=== PATIENT | female | born 1965 | race Two or more races ===

== ENCOUNTER 2017-05-05 17:57 | Emergency (ER) | payer MEDICAID ==
[~2017-05-05] VITALS: Ht 160 cm; Wt 107.0 kg
[~2017-05-05 17:57] MED LIST: BP MED; IBUPROFEN600 MG ORAL; MECLIZINE HCL25 MG ORAL
[2017-05-05] MEDS ORDERED: IBUPROFEN600 MG ORAL (18:36)
[2017-05-05] MEDS ORDERED: ROBAXIN-750750 MG PO (18:36)
[2017-05-05 18:39] VITALS: BP 111/78
[2017-05-05] MEDS ORDERED: Ipratropium 0.02% Inh Soln 2.5ml UD ONE (18:51)
[2017-05-05] MEDS ORDERED: Albuterol ud Inhalation ONE (18:51)
[2017-05-05] MEDS ORDERED: Ranitidine 50mg/2ml Inj ONE (18:52)
[2017-05-05] MEDS ORDERED: Solu-MEDROL 125mg Inj ONE (18:53)
[2017-05-05] MEDS ORDERED: Terbutaline 1mg/ml Inj ONE (18:53)
[2017-05-05] MEDS ORDERED: DiphenhydrAMINE 50mg/ml Inj ONE (18:53)
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
== END 2017-05-05 18:39 | disposition home or self-care (01) ==
LOC: EMR 18:15
DX: S93.402A Sprain of unspecified ligament of left ankle, initial encounter (principal); V43.52XA Car driver injured in collision with other type car in traffic accident, initial encounter; Y92.481 Parking lot as the place of occurrence of the external cause; M54.5 Low back pain; I10 Essential (primary) hypertension
CPT/HCPCS: 29540; 99284; J2780

== ENCOUNTER 2017-10-17 14:46 | Emergency (ER) | payer MEDICAID ==
[~2017-10-17] VITALS: Ht 160 cm; Wt 107.0 kg
[~2017-10-17 14:46] MED LIST changes: +ROBAXIN-750750 MG PO
[2017-10-17] MEDS ORDERED: VITAMIN D1000 UNI1 ORAL (15:00)
[2017-10-17] MEDS ORDERED: LISINOPRIL5 MG ORAL (15:00)
[2017-10-17] MEDS ORDERED: [UNRECOGNIZED DRUG - REMARK] (15:00)
[2017-10-17] MEDS ORDERED: CORTISPORIN EAR10 ML RIGHT EAR (15:26)
[2017-10-17 15:30] VITALS: BP 117/80
--- NOTE | 2017-10-17 16:33 | Emergency Room Report ---
History of Present Illness General Chief Complaint: Earache Source: Patient Present Illness HPI The patient is a 52-year-old female presenting for right ear pain which began 2 days prior for no known reason. Pain is a 7/10 dull ache with no known provoking or relieving factors. She denies any other symptoms including nausea , vomiting, dizziness, blurred vision, change in hearing, sore throat, cough, fever, chills Allergies: Coded Allergies: No Known Allergies (Unverified , 11/05/14) Patient History Past Medical History: see triage record Pertinent Family History: none Last Menstrual Period: Perimenopausal Reviewed Nursing Documentation: PMH: Agreed, PSxH: Agreed Nursing Documentation-PMH Hx Hypertension: Yes Review of Systems All Other Systems: negative except mentioned in HPI Physical Exam Vital Signs Date Time Temp Pulse Resp B/P (MAP) Pulse Ox O2 Delivery O2 Flow Rate FiO2 10/17/17 14:55 98.1 69 16 120/79 98 Room Air Sp02 EP Interpretation: reviewed, normal General Appearance: no apparent distress, alert, GCS 15, non-toxic Head: normocephalic, atraumatic Eyes: bilateral eye normal inspection, bilateral eye PERRL ENT: hearing grossly normal, normal pharynx, no angioedema, normal voice, other - R EAC erythema and TTP Neck: full range of motion, supple/symm/no masses Respiratory: chest non-tender, lungs clear, normal breath sounds, speaking full sentences Cardiovascular #1: regular rate, rhythm, no edema Musculoskeletal: back normal, gait/station normal, normal range of motion, non- tender Neurologic: alert, oriented x3, responsive, motor strength/tone normal, sensory intact, speech normal Psychiatric: judgement/insight normal, memory normal, mood/affect normal, no suicidal/homicidal ideation Skin: normal color, no rash, warm/dry, well hydrated Medical Decision Making PA Attestation Dr. Lucio is my supervising physician. Patient management was discussed with my supervising physician Diagnostic Impression: Primary Impression: Otitis externa, acute Qualified Codes: H60.501 - Unspecified acute noninfective otitis externa, right ear ER Course The patient is a 52-year-old female presenting for right ear pain which began 2 days prior Differential diagnosis include but not limited to otitis externa, otitis media, mastoiditis, sinusitis, pharyngitis Physical exam: Vitals within normal limits. No apparent distress. HEENT: R ear external auditory canal is erythematous and edematous. Tympanic membrane is intact. No bulging. There is no cervical lymphadenopathy. Otherwise exam is unremarkable The patient will be discharged home with a prescription for Cortisporin Last Vital Signs Date Time Temp Pulse Resp B/P (MAP) Pulse Ox O2 Delivery O2 Flow Rate FiO2 10/17/17 15:30 97.5 66 18 117/80 99 Room Air Status: improved Disposition: HOME, SELF-CARE Condition: Improved Scripts Neomycin/Polymyxin B Sulf/Hc* (CORTISPORIN EAR SOLUTION*) 10 Ml Solution 4 DROP RIGHT EAR QID, #10 ML 0 Refills Prov: JUAN DANIEL HINDS 10/17/17 Referrals: [facility],REFERRING (PCP) Patient Instructions: Otitis Externa Additional Instructions: I discussed my findings with the patient. All questions and concerns have been answered. Treatment and medication compliance have been addressed. I advised the patient that they need to follow up with PMD in 3-5 days. Return to ED if pain remains or worsens, cough worsens or remains, you notice blood in your sputum, you notice wheezing, you experience a fever, or if needed for any reason. Patient verbalized understanding of discharge instructions. JUAN DANIEL HINDS Oct 17, 2017 16:33
== END 2017-10-17 15:30 | disposition home or self-care (01) ==
LOC: EMR 15:24
DX: H60.91 Unspecified otitis externa, right ear (principal); I10 Essential (primary) hypertension
CPT/HCPCS: 99283

== ENCOUNTER 2017-11-29 07:28 | Emergency (ER) | payer MEDICAID ==
[~2017-11-29] VITALS: Ht 160 cm; Wt 108.9 kg
[~2017-11-29 07:28] MED LIST changes: +CORTISPORIN EAR10 ML RIGHT EAR; +LISINOPRIL5 MG ORAL; +VITAMIN D1000 UNI1 ORAL; +[UNRECOGNIZED DRUG - REMARK]
[2017-11-29] MEDS ORDERED: ROBAXIN-750750 MG PO (07:51)
[2017-11-29] MEDS ORDERED: TESSALON PERLE100 MG ORAL (07:51)
[2017-11-29 07:55] VITALS: BP 146/88
--- NOTE | 2017-11-29 07:59 | Emergency Room Report ---
History of Present Illness General Chief Complaint: Pain Source: Patient Present Illness HPI 52-year-old female, history of back pain, history of osteoarthritis, presenting with upper right-sided back pain for the last 3-4 days. States that it hurts more when she twists or bends. Denies any numbness or tingling of her extremities. No urinary retention. No trauma Also states that she has had about one week of a dry cough. No shortness of breath. No fever no chills no myalgias Allergies: Coded Allergies: No Known Allergies (Unverified , 11/05/14) Patient History Past Medical History: see triage record Past Surgical History: none Pertinent Family History: none Last Menstrual Period: 11/06/17 Now: No Reviewed Nursing Documentation: PMH: Agreed, PSxH: Agreed Nursing Documentation-PMH Hx Hypertension: Yes Review of Systems All Other Systems: negative except mentioned in HPI Physical Exam Vital Signs Date Time Temp Pulse Resp B/P (MAP) Pulse Ox O2 Delivery O2 Flow Rate FiO2 11/29/17 07:38 97.7 79 17 146/88 99 Room Air Sp02 EP Interpretation: reviewed, normal General Appearance: normal inspection, well appearing, no apparent distress, alert, GCS 15, non-toxic, other - smiling, conversing, well hydrated Head: normocephalic, atraumatic Eyes: bilateral eye normal inspection, bilateral eye PERRL, bilateral eye EOMI ENT: normal ENT inspection, normal pharynx, normal voice, moist mucus membranes Neck: normal inspection, full range of motion, supple Respiratory: normal inspection, lungs clear, normal breath sounds, no respiratory distress, no retraction, no wheezing, speaking full sentences, chest symmetrical Cardiovascular #1: normal inspection, regular rate, rhythm, no edema, normal capillary refill Cardiovascular #2: 2+ radial (R), 2+ radial (L) Gastrointestinal: normal inspection, non tender, soft, non-distended, no guarding Musculoskeletal: other - mild paraspinal R sided thoracic tenderness no midline tenderness FROM. Neurologic: normal inspection, alert, oriented x3, responsive, motor strength/ tone normal, sensory intact, normal gait, speech normal Psychiatric: normal inspection, judgement/insight normal, memory normal Skin: normal inspection, normal color, no rash, warm/dry, well hydrated, normal turgor Medical Decision Making Diagnostic Impression: Primary Impression: Cough Additional Impression: Back pain ER Course 52-year-old female, chronic back pain, p/w back pain and dry cough DDX: Likely musculoskeletal back pain vs. muscular strain vs. sciatica Lumbar fracture is unlikely given patients age, no midline tenderness, no history of trauma, and that patient is ambulatory. Therefore, at this time no imaging is indicated Serious diagnoses such as cord compression, epidural abscess is unlikely in this patient given the clinical scenario and abscess of neurological symptoms or findings. Patient appears nontoxic. Dry cough: Likely postviral, lung exam is normal, is not having any other flulike symptoms at this time Plan: None in the emergency room ER course: Patient has remained nontoxic appearing and ambulatory in the ED. Disposition: Patient will be discharged to home with prescription of Tessalon Perles and robaxin. Patient cautioned of the effects of robaxin including possible impairment of physical or mental abilities. Patient was instructed to refrain from operating machinery or driving. Patient is also cautioned on the GI effects of motrin and to take sparingly. Patient verbalized understanding. Strict precautions discussed with patient on when to emergently return to the ED which includes severe/worsening back pain, leg weakness/numbness, urinary retention/incontinence, fever or chills, which may indicate severe illness. Also she is having chest pain, difficulty breathing, or worsening cough Patient is to follow up with their PMD within 5 days. Patient agrees with plan. Please note that this Emergency Department Report was dictated using [employer] purifier technology software, occasionally this can lead to erroneous entry secondary to interpretation by the dictation equipment. Last Vital Signs Date Time Temp Pulse Resp B/P (MAP) Pulse Ox O2 Delivery O2 Flow Rate FiO2 11/29/17 07:38 97.7 79 17 146/88 99 Room Air Disposition: HOME, SELF-CARE Condition: Stable Scripts Benzonatate* (TESSALON PERLE*) 100 Mg Capsule 100 MG ORAL THREE TIMES A DAY for 7 Days, #21 PERLE 0 Refills Prov: Retino,Clairose M.D. 11/29/17 Methocarbamol* (ROBAXIN-750*) 750 Mg Tablet 750 MG PO QID, #28 TAB 0 Refills Prov: Retino,Clairose M.D. 11/29/17 Patient Instructions: Cough, Adult, [id number], Back Pain, Adult, Easy-to- Read Retino,Clairose M.D. Nov 29, 2017 07:59
== END 2017-11-29 07:55 | disposition home or self-care (01) ==
LOC: EMR 07:52
DX: M54.9 Dorsalgia, unspecified (principal); R05 Cough; I10 Essential (primary) hypertension
CPT/HCPCS: 99283

== ENCOUNTER 2017-12-08 17:36 | Emergency (ER) | payer MEDICAID ==
[~2017-12-08] VITALS: Ht 160 cm; Wt 111.6 kg
[~2017-12-08 17:36] MED LIST changes: +TESSALON PERLE100 MG ORAL
[2017-12-08 17:56] VITALS: BP 141/90
[2017-12-08] MEDS ORDERED: BUSPAR10 MG ORAL (18:41)
--- NOTE | 2017-12-08 18:41 | Emergency Room Report ---
History of Present Illness General Chief Complaint: Pain Present Illness Allergies: Coded Allergies: No Known Allergies (Unverified , 11/05/14) Nursing Documentation-PMH Hx Hypertension: Yes Physical Exam Vital Signs Date Time Temp Pulse Resp B/P (MAP) Pulse Ox O2 Delivery O2 Flow Rate FiO2 12/08/17 17:53 98.2 83 20 141/90 99 Room Air Medical Decision Making PA Attestation Dr. schrader is my supervising Physician whom patient management has been discussed with. Diagnostic Impression: Primary Impression: Anxiety as acute reaction to exceptional stress Last Vital Signs Date Time Temp Pulse Resp B/P (MAP) Pulse Ox O2 Delivery O2 Flow Rate FiO2 12/08/17 17:56 98.2 20 141/90 99 Room Air 12/08/17 17:53 83 Disposition: HOME, SELF-CARE Condition: Stable Additional Instructions: Take medications as directed. Follow up with a Primary Care Provider or psychiatric physician in 3-5 days , even if your symptoms have resolved. --Please review [employer] information Return sooner to ED if new symptoms occur, or current symptoms become worse. - Please note that this Emergency Department Report was dictated using [employer] intern technology software, occasionally this can lead to erroneous entry secondary to interpretation by the dictation equipment. Kenzie Vang Dec 08, 2017 18:41
[2017-12-08] MEDS ORDERED: IBUPROFEN600 MG ORAL (19:45)
[2017-12-08 19:53] VITALS: BP 132/95
--- NOTE | 2017-12-08 22:47 | Emergency Room Report ---
History of Present Illness General Chief Complaint: Pain Source: Patient Present Illness HPI 52-year-old female presents to ED complaining of left shoulder pain times one week. Denies trauma. Pain is throbbing, 8/10, nonradiating. Worse with raising shoulder. Has history of arthritis. No other aggravating or leading factors. Denies any other associated symptoms Allergies: Coded Allergies: No Known Allergies (Unverified , 11/05/14) Patient History Past Medical History: HTN Past Surgical History: none Pertinent Family History: none Social History: Denies: smoking, alcohol use, drug use Now: No Immunizations: UTD Reviewed Nursing Documentation: PMH: Agreed, PSxH: Agreed Nursing Documentation-PMH Hx Hypertension: Yes Review of Systems All Other Systems: negative except mentioned in HPI Physical Exam Vital Signs Date Time Temp Pulse Resp B/P (MAP) Pulse Ox O2 Delivery O2 Flow Rate FiO2 12/08/17 17:53 98.2 83 20 141/90 99 Room Air Sp02 EP Interpretation: reviewed, normal General Appearance: no apparent distress, alert, GCS 15, non-toxic Head: normocephalic Eyes: bilateral eye normal inspection, bilateral eye PERRL ENT: normal ENT inspection Neck: normal inspection Respiratory: normal inspection Cardiovascular #1: normal inspection Gastrointestinal: normal inspection Rectal: deferred Genitourinary: no CVA tenderness Musculoskeletal: tender - L shoulder - pain with abduction Neurologic: alert, oriented x3, responsive, motor strength/tone normal, sensory intact, speech normal Psychiatric: normal inspection Skin: normal inspection Lymphatic: normal inspection Medical Decision Making Diagnostic Impression: Primary Impression: Shoulder pain Qualified Codes: M25.512 - Pain in left shoulder ER Course Hospital Course 52-year-old febrile presents ED complaining of left shoulder pain times one week. No trauma Differential diagnoses include: Fracture, dislocation, sprain, contusion Clinical course Patient placed on stretcher. After initial history and physical, I ordered pain medications and Xrays of L shoulder Xrays prelim read shows no acute fracture/dislocation. Based on pain with abduction likely rotator cuff tendinitis. Discussed the patient. Recommended ice, rest, NSAIDS, followup with PMD Diagnosis - shoulder pain Stable and discharged to home with prescription for Motrin. apply ice. weight bear as tolerated. Followup with PMD. Return to ED if symptoms recur or worsen Other X-Ray Diagnostic Results Other X-Ray Diagnostic Results : X-Ray ordered: L shoulder # of Views/Limited Vs Complete: 3 View Indication: Pain EP Interpretation: Yes Interpretation: no dislocation, no soft tissue swelling, no fractures Impression: No acute disease Electronically Signed by: Electronically signed by Jag Hope MD Last Vital Signs Date Time Temp Pulse Resp B/P (MAP) Pulse Ox O2 Delivery O2 Flow Rate FiO2 12/08/17 19:06 98.2 12/08/17 17:56 20 141/90 99 Room Air 12/08/17 17:53 83 Status: improved Disposition: HOME, SELF-CARE Condition: Stable Scripts Ibuprofen* (MOTRIN*) 600 Mg Tablet 600 MG ORAL Q8H Y for For Pain, #30 TAB 0 Refills Prov: JAG HOPE M.D. 12/08/17 Referrals: [facility],REFERRING (PCP) Patient Instructions: Rotator Cuff Tendinitis JAG HOPE M.D. Dec 08, 2017 22:47
--- NOTE | 2017-12-09 12:53 | Diagnostic Imaging Report ---
Indication: Pain Technique: XRAY Shoulder Compl L Comparison: None Findings: No acute fracture or dislocation. No soft tissue abnormality appreciated. Imaged lungs are clear. Impression: No acute fracture or dislocation.
== END 2017-12-08 19:53 | disposition home or self-care (01) ==
LOC: EMR 19:51
DX: M25.512 Pain in left shoulder (principal); I10 Essential (primary) hypertension
CPT/HCPCS: 99283